=== PATIENT | male | born 1995 | race Caucasian/White ===

== ENCOUNTER 2023-11-23 12:13 | Emergency (ER) | payer MEDICAID ==
[~2023-11-23] VITALS: Ht 177.8 cm; Wt 79.4 kg
[2023-11-23 12:21] VITALS: BP_SYST 140; PULSE 86; RESP 16; TEMP 97.8; O2SAT 99
[2023-11-23] MEDS ORDERED: TRAM50TA2 PO (13:22)
[2023-11-23] MEDS ORDERED: NAPR-688 PO (13:22)
[2023-11-23] MEDS: KETOROLAC TROMETHAMINE 60 MG/2 ML VIAL IM ONE (13:44)
[2023-11-23 13:48] VITALS: BP_SYST 130; PULSE 86; RESP 16; TEMP 97.8; O2SAT 99
== END 2023-11-23 13:48 | disposition home or self-care (01) ==
LOC: SED 12:13
DX: S29.011A Strain of muscle and tendon of front wall of thorax, initial encounter (principal); X58.XXXA Exposure to other specified factors, initial encounter; Y93.72 Activity, wrestling; Y92.89 Other specified places as the place of occurrence of the external cause; Y99.8 Other external cause status
CPT/HCPCS: 99284; 71045; 71100; 96372; 29125; J1885